=== PATIENT | male | born 1975 | race African-American/Black ===

== ENCOUNTER 2016-11-23 15:12 | Emergency (ER) | payer SELFPAY ==
[~2016-11-23 15:12] MED LIST: NAPR550T3 PO
[2016-11-23 15:14] VITALS: BP 133/67; PULSE 68; RESP 14; TEMP 98.3; O2SAT 100
== END 2016-11-23 15:35 | disposition left against medical advice (07) ==
LOC: NED 15:12
DX: Z03.89 Encounter for observation for other suspected diseases and conditions ruled out (principal)
CPT/HCPCS: 99281